=== PATIENT | male | born 1965 | race Caucasian/White ===

== ENCOUNTER 2025-02-01 15:44 | Emergency (ER) | payer BC, OTHER ==
[2025-02-01 17:03] LABS: BASOPHILS PERCENT AUTO 0.1 % (0.0-1.0); EOSINOPHILS PERCENT AUTO 0.1 % (0.0-6.0); HEMATOCRIT 43.3 % (42.0-52.0); HEMOGLOBIN 15.2 gm/dl (14.0-18.0); IMMATURE GRAN ABSOLUTE AUTO 0.02 K/mm3 (0.00-0.05); IMMATURE GRAN PERCENT AUTO 0.2 % (0.0-0.4); LYMPHOCYTES ABSOLUTE AUTO 0.9 K/mm3 (1.0-4.8); LYMPHOCYTES PERCENT AUTO 9.9 % (24.0-44.0); MEAN CORPUSCULAR HEMOGLOBIN 31.3 pg (28.0-32.0); MEAN CORPUSCULAR HGB CONC 35.1 g/dl (32.0-36.0); MEAN CORPUSCULAR VOLUME 89.3 fl (83.0-99.0); MEAN PLATELET VOLUME 8.8 fl (9.4-12.4); MONOCYTES ABSOLUTE AUTO 0.4 K/mm3 (0.0-0.8); MONOCYTES PERCENT AUTO 4.2 % (0.0-8.0); NEUTROPHILS ABSOLUTE AUTO 7.4 K/mm3 (1.8-7.7); NEUTROPHILS PERCENT AUTO 85.5 % (41.0-71.0); PLATELET COUNT,PLT 248 K/mm3 (150-400); RED BLOOD CELL COUNT 4.85 M/mm3 (4.52-5.90)
[2025-02-01 17:17] LABS: INR 1.05; PROTHROMBIN TIME 11.1 SECONDS (9.7-12.0)
[2025-02-01 17:19] LABS: PTT,PARTIAL THROMBOPLSTIN TIME 26.2 SECONDS (21.7-31.4)
[2025-02-01 17:23] LABS: ALBUMIN 3.6 g/dl (3.4-5.0); BILIRUBIN TOTAL 0.7 mg/dL (0.2-1.0); EST CRCL DRUG DOSING (CG) 82.62 mL/min; PROTEIN TOTAL,TP 7.3 g/dl (6.4-8.2)
[2025-02-01] MEDS: Meclizine 25 MG Tab PO ONE (17:27)
[2025-02-01] MEDS: Sodium Chloride 0.9% 1,000 ML IV ONE (17:27)
[2025-02-01] MEDS: Ondansetron 4 MG/2 ML SDV IVPUSH ONE (17:27)
[2025-02-01] MEDS: Sodium Chloride 0.9% 10 ML Syringe FLUSH PRN (17:27)
== END 2025-02-01 19:09 | disposition home or self-care (01) ==
LOC: JD.ED 15:44
DX: R42 Dizziness and giddiness (principal); H66.002 Acute suppurative otitis media without spontaneous rupture of ear drum, left ear; E78.00 Pure hypercholesterolemia, unspecified; E11.9 Type 2 diabetes mellitus without complications
CPT/HCPCS: 36415; 80053; 84484; 85025; 85610; 85730; 93005; 96361; 96374; 99284; A9270; J2405; J7030